=== PATIENT | male | born 1985 | race American Indian/Alaskan Native ===

== ENCOUNTER 2017-07-17 23:13 | Emergency (ER) | payer SELFPAY ==
[2017-07-18] MEDS ORDERED: TYLENOL PO ONE (00:54)
[2017-07-18] MEDS ORDERED: TYLENOL ONE (00:58)
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
[2017-07-18] MEDS ORDERED: MORPHINE IM ONE (09:00)
[2017-07-18] MEDS ORDERED: ZOFRAN IM ONE (09:00)
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
[2017-07-18 09:43] VITALS: BP 136/81
== END 2017-07-18 09:48 | disposition home or self-care (01) ==
LOC: ED 23:13
DX: S02.5XXA Fracture of tooth (traumatic), initial encounter for closed fracture (principal); S02.80XA Fracture of other specified skull and facial bones, unspecified side, initial encounter for closed fracture; F17.200 Nicotine dependence, unspecified, uncomplicated; F12.10 Cannabis abuse, uncomplicated; R56.9 Unspecified convulsions; V43.12XA Car passenger injured in collision with other type car in nontraffic accident, initial encounter; Y92.488 Other paved roadways as the place of occurrence of the external cause; Y93.89 Activity, other specified; Y99.9 Unspecified external cause status
CPT/HCPCS: 70450; 70486; 96372; 99283; J2270; J2405